=== PATIENT | male | born 1995 | race Caucasian/White ===

== ENCOUNTER 2018-04-05 09:53 | Emergency (ER) | payer OTHER, SELFPAY ==
--- NOTE | 2018-04-05 10:29 | ED.DIZZY ---
HPI - Dizziness General Chief Complaint: Dizziness Stated Complaint: VERTIGO Time Seen by Provider: 04/05/18 10:01 Source: patient Mode of arrival: ambulatory Limitations: no limitations History of Present Illness HPI Narrative: Patient is an otherwise healthy 23-year-old male here for evaluation of vertigo. He describes a room spinning sensation without any other associated symptoms. He states that it started this morning when he was bending over to pick coffee cup up off the ground. He states that his symptoms seem to worsen when he bends over or extends his neck. No other associated symptoms to include chest pain, palpitations, tinnitus, shortness of breath or vision changes. He has never had anything like this before. Has not tried anything for it prior to arrival. Related Data Previous Rx's Medication Instructions Recorded diazepam [Valium] 5 mg PO BID-TID PRN #5 tab 04/05/18 meclizine 25 mg PO BID-TID PRN #10 tab 04/05/18 Review of Systems Constitutional Denies chills, Denies fever(s) and Denies headache(s) ENT Ears, Nose, Mouth, and Throat: Reports vertigo, Reports dizziness, Denies headache(s), Denies sore throat and Denies throat swelling Cardiovascular Denies chest pain, Denies palpitations and Denies dyspnea Respiratory Denies cough and Denies dyspnea Gastrointestinal Gastrointestinal: Denies abdominal pain, Denies change in stool character, Denies constipation, Reports nausea and Denies vomiting Musculoskeletal Denies myalgias and Denies arthralgias Integumentary/Breasts Denies lesions and Denies rash Neurologic Reports vertigo, Reports dizziness and Denies headache(s) Endocrine Denies palpitations Hematologic/Lymphatic Denies easy bleeding and Denies easy bruising Allergic/Immunologic Denies throat swelling [facility] Medical History Healthy adult (Acute) Surgical History No pertinent past surgical history (Acute) Social History Smoking Status: Former smoker Exam Initial Vital Signs Initial Vital Signs: Vital Signs Pulse Rate 85 04/05/18 10:30 Respiratory Rate 20 04/05/18 10:30 Blood Pressure 123/90 H 04/05/18 10:30 Pulse Oximetry 100 04/05/18 10:30 Const General: cooperative, healthy appearing, comfortable, well developed, well groomed and No acute distress Orientation: alert, awake and oriented x3 [facility] Head: normal to inspection, normocephalic and atraumatic Nose: external nose normal Face and sinus: normal facial exam Mouth: oral mucosae normal Eyes Pupils: PERRL EOM: EOM intact bilaterally Neck Neck: normal visual inspection, full ROM and no meningeal signs Resp Effort & Inspection: normal respiratory effort Auscultation: clear to auscultation bilaterally Cardio Rate: regular rate Rhythm: regular rhythm GI Inspection: non-distended Palpation: soft, No firm and No tender Back/Spine/Pelvis Back: No CVA tenderness Skin Lesions: no lesions Rashes: no rashes Neuro General: alert, awake, oriented x3, gait normal and moves all extremities Cranial Nerves: CN's II-XI intact bilaterally and PERRL Cognition: normal cognition Speech: speech normal Gait: normal gait Motor: muscle tone normal throughout and strength 5/5 throughout Sensory Exam: no sensory deficits noted Other: [place]-Hallpike maneuver positive to the left and slightly positive to the right. Extrem General: normal to inspection, full ROM and capillary refill normal Psych Appearance: grossly normal and well kempt Course Orders Ordered: ED Orders 04/05/18 10:06 EKG-12 Lead Stat Discontinued Medications Meclizine HCl (Antivert) 25 mg PO NOW ONE Stop: 04/05/18 10:30 Last Admin: 04/05/18 10:38 Dose: 25 mg Vital Signs - 8 hr 04/05/18 10:30 Pulse Rate 85 Respiratory Rate 20 Blood Pressure [Right Arm] 123/90 H Pulse Oximetry 100 [facility] - Dizziness ECG Data Attestation: I personally reviewed and interpreted this ECG as follows: Prior ECG tracings: not available for review Interpretation: Sinus rhythm Ventricular rate is 60 Normal axis Normal intervals Normal QRS Normal QTC No ST T wave changes [facility] Narrative Medical decision making narrative: Patient with a history and physical exam consistent with peripheral vertigo. Patient was given meclizine here in the emergency department with only minimal improvement of his symptoms. He has a normal neurologic exam otherwise. Consider diagnosis such as vertebral artery dissection, vertebral artery insufficiency, subarachnoid hemorrhage, intracranial mass, and other intracranial pathologies. He does have a definitively positive [place]-Hallpike maneuver to the left. Slightly positive Edy-Hallpike maneuver to the right. Patient was given a prescription for meclizine and also a few pills of Valium. He was also given instructions for the Hussein maneuver. He has an appointment with his primary [place] 3 o'[place] He was given return precautions. He expressed understanding and agreement with plan. Discharge Plan Departure Patient Disposition: Home Clinical Impression: Vertigo Instructions: Vertigo (Alternative Therapy), DI for Vertigo Activity Restrictions/Additional Instructions: Keep your appointment with your medical department that you have this afternoon. Take the medication like we discussed. Highly recommend that you do the Hussein/particle repositioning maneuver that we discussed. Follow the instructions that she were given. Return to the emergency department for any new or worsening symptoms. Prescriptions: New meclizine 25 mg tablet 25 mg PO BID-TID PRN (Reason: motion sickness) Qty: 10 RF: 0 diazepam [Valium] 5 mg tablet 5 mg PO BID-TID PRN (Reason: vertigo) Qty: 5 RF: 0 Stand Alone Forms: Work/School Restrictions
[2018-04-05 10:30] VITALS: BP 123/90; PULSE 85; RESP 20; O2SAT 100
[2018-04-05] MEDS: MECLIZINE HCL 12.5 MG TABLET 25 MG PO (10:38)
[2018-04-05 11:22] VITALS: BP 126/79; PULSE 73; RESP 18; O2SAT 100
== END 2018-04-05 11:23 | disposition home or self-care (01) ==
PROVIDERS: Emergency Provider Emergency Medicine; PCP Family Medicine
DX: R42 Dizziness and giddiness (principal)
CPT/HCPCS: 82962; 93005; 93010; 99283; 99284

== ENCOUNTER → 2025-02-20 12:52 | Outpatient (CLI) | payer OTHER, SELFPAY ==
--- NOTE | 2025-02-20 12:54 | DI.CT.S_ITS ---
PROCEDURE: CT ABDOMEN PELVIS W CON INDICATIONS: LUQ PAIN TECHNIQUE: After the administration of intravenous contrast, axial sections acquired from the lung bases to the pubic symphysis. Coronal and sagittal reformats were performed. For radiation dose reduction, the following was used: automated exposure control, adjustment of mA and/or kV according to patient size. COMPARISON: None. FINDINGS: Image quality: Diagnostic. Lower Chest: No significant findings. ABDOMEN: Liver: No solid mass. Gallbladder: No radiopaque gallstones or wall thickening. Biliary ducts: No biliary dilation. Pancreas: No ductal dilation. Spleen: Size is within normal limits. Adrenal Glands: No adrenal nodules. Kidneys and Ureters: No hydronephrosis. No solid mass. No complex renal cystic lesion which requires follow up. Stomach and Bowel: Normal colonic caliber, without significant wall thickening. Normal appendix. No diverticular disease. Peritoneum: No abnormal intraperitoneal fluid. No free air. Ventral Wall: No significant ventral hernia. Abdominal Nodes: No retroperitoneal or mesenteric adenopathy by size criteria. Vessels: Aorta and inferior vena cava are normal in size. PELVIS: Pelvic Organs: Unremarkable. Bladder: No bladder wall thickening, accounting for underdistention. Pelvic Nodes: No enlarged lymph nodes. Miscellaneous: No inguinal hernias are seen. Bones: No aggressive osseous abnormality. IMPRESSION: No findings to explain the patient's left upper quadrant pain. No nephrolithiasis. No diverticular disease. No hiatal hernia. Dictated by: Alek Moseley M.D. on 02/22/2025 at 20:09 Approved by: Alek Moseley M.D. on 02/22/2025 at 20:11
== END ==
LOC: CT 12:53
PROVIDERS: PCP Family Medicine
DX: R10.12 Left upper quadrant pain (principal); R14.2 Eructation
CPT/HCPCS: 74177; Q9967